=== PATIENT | female | born 1930 | race Caucasian/White ===

== ENCOUNTER 2018-05-04 23:14 | Inpatient (IN) | payer MEDICARE, MEDICAID ==
[2018-05-04 23:38] LABS: #Basophils 0.1 thou/uL (0.0-0.2); #Eosinphils 0.1 thou/uL (0.0-0.7); #Lymphocytes 2.6 thou/uL (1.20-3.40); #Monocytes 0.8 thou/uL (0.11-0.59); #Neutrophils 7.7 thou/uL (1.40-6.50); %Basophils 0.7 % (0.0-1.0); %Eosinophils 0.7 % (0.0-10.0); %Lymphocytes 22.7 % (21.0-51.0); %Monocytes 7.1 % (0.0-10.0); %Neutrophils 68.9 % (42.0-75.0); Hemoglobin 13.2 g/dL (12.0-16.0); Mean Corpuscular HGB CONC 34.4 g/dL (32.0-36.0); Mean Corpuscular Hemoglobin 32.2 pg (27.0-31.0); Mean Corpuscular Volume 93.4 fL (78.0-98.0); Mean Platelet Volume 6.5 fL (7.4-10.4); Platelet Count 320 thou/uL (130-400); RBC Distribution Width 12.7 % (11.5-14.5); White Blood Cell (WBC) Count 11.2 thou/uL (4.8-10.8)
[2018-05-04 23:44] LABS: PTT 29.5 SEC (22.9-36.1); Prothrombin Time 13.6 SEC (12.0-14.7)
[2018-05-04 23:57] LABS: ALT (SGPT) 15 U/L (8-55); AST (SGOT) 17 U/L (5-34); Albumin 3.9 g/dL (3.4-4.8); Alkaline Phosphatase 43 U/L (40-150); Anion Gap 15 mmol/L (10-20); BUN (Urea Nitrogen) 49 mg/dL (9.8-20.1); Bilirubin, Total 0.6 mg/dL (0.2-1.2); Calc. Creatinine Clearance 0 mL/min (70-130); Calcium 10.1 mg/dL (7.8-10.44); Carbon Dioxide 28 mmol/L (23-31); Chloride 96 mmol/L (98-107); Estimated GFR-MDRD 65; Globulin 2.7 g/dL (2.4-3.5); Glucose 99 mg/dL (83-110); Potassium 4.2 mmol/L (3.5-5.1); Protein, Total 6.6 g/dL (6.0-8.3); Sodium 135 mmol/L (136-145)
[2018-05-05 02:05] LABS: Bilirubin Negative (Negative); Blood, Urine Large (Negative); Clarity TURBID (Clear); Glucose, Urine (Dipstick) Negative (Negative); Leukocyte Large (Negative); Nitrite Negative (Negative); Protein, Urine (Dipstick) 30 mg/dL (Neg-Trace); Specific Gravity, Urine 1.012 (1.002-1.036); Urobilinogen 0.2 mg/dL (0.2-1.0)
[2018-05-05 02:07] LABS: Bacteria/HPF 3+ HPF (None Seen); Squamous Epithelial 21-50 HPF (0-3)
[2018-05-05 02:14] LABS: Pathc Cast-AUWi Flag 1256.23 (0-2.49); Yeast-AUWi Flag 144.6 (0-25.0)
[2018-05-05 02:21] LABS: Renal Epithelial None Seen HPF (0-3); Transitional Epithelial NONE SEEN HPF (0-3); Yeast-All Forms None Seen HPF (None Seen)
[2018-05-05 02:22] LABS: Hyaline Casts/LPF NONE SEEN LPF (0-3 Hyaline)
[2018-05-05 02:26] LABS: Other Casts/LPF None Seen LPF (0-3 Hyaline)
[2018-05-05] MEDS ORDERED: Ondansetron ODT 4 MG TAB SL PRN (04:07)
[2018-05-05] MEDS ORDERED: Ondansetron HCl/PF 4 MG/2 ML Vial IVP PRN (04:07)
[2018-05-05] MEDS ORDERED: Acetaminophen 325 MG TAB PO PRN ×2 (04:07→08:21)
[2018-05-05] MEDS ORDERED: Ondansetron ODT 4 MG TAB PO PRN (08:21)
[2018-05-05] MEDS ORDERED: Prevnar 13-Val Conj/PF 0.5 ML SYRINGE IM ONE (09:00)
[2018-05-05] MEDS: Sodium Chloride 0.9% 1,000 ML IV SCH (09:33)
[2018-05-05] MEDS: Enoxaparin Sodium 40 MG/0.4 ML SYRINGE SC SCH (09:40)
[2018-05-05] MEDS: Famotidine 20 MG TAB PO SCH (09:43)
[2018-05-05 13:08] VITALS: BMI 17.7
[2018-05-05] MEDS ORDERED: Atorvastatin Calcium 10 MG TAB PO SCH (21:00)
--- NOTE | 2018-05-05 22:07 | HP ---
CHIEF COMPLAINT: Patient did not have a chief complaint; however, chief complaint was obtained from the patient's medical records and stated that patient has possible gastrointestinal bleed. HISTORIAN: Patient's power of state attorney, patient's electronic medical record, the patient's nurse, charlee valadez. HISTORY OF PRESENT ILLNESS: This is an 87-year-old female with past medical history of hyperlipidemi a, hypertension, general weakness, muscle wasting, coronary artery disease status post pacemaker, hyp oparathyroidism, GERD, and anemia who is presenting with urinary tract infection per patient's notes. Patient was sent from the intermediate and was brought to [facility]. The patien t was at that point diagnosed with UTI reason why patient was brought to the ED per patient's records states the patient had confusion. The patient was started on Cipro and the patient was sent back to intermediate; however, upon records, stated that patient had some "blood" in her stool; therefore, t he patient was sent to our emergency room to be evaluated. Per power of state attorney and per the patient , the patient denies any abdominal pain or seen any blood in the stool. Therefore, stool occult bloo d was ordered in the ED, which came back negative and the patient has not shown any signs of any acut e bleed; therefore, the patient is now being admitted for UTI. Patient denies any fever. She denies nausea, vomiting, chest pain, abdominal pain. Patient admits to not being able to walk on her own. Per the patient, she uses her walker and was using a walker. She is able to ambulate. Also, per charlee pereyra, the patient had a little confusion when she was sent to the [facility]; corado umu, during our conversation, the patient did not show any signs of confusion. REVIEW OF SYSTEMS: Positive for weakness. Negative for all the ones that are stated in the HPI. PAST MEDICAL HISTORY: The patient has past medical history of hyperlipidemia, hypertension, hypopara thyroidism, anemia, osteoporosis, chronic bronchitis, GERD, coronary artery disease. PAST SURGICAL HISTORY: The patient had a surgical history of hysterectomy and carpal tunnel repair. SOCIAL HISTORY: Patient lives in a long-term care facility. Patient denies any drug use. The patie nt does not smoke. ALLERGIES: Patient is allergic to KEFLEX. CURRENT MEDICATIONS: 1. Patient is on Cipro 500 mg. 2. Jenny 180 mg. 3. Aspirin 325 mg. 4. Calcium 600 plus vitamin D3. 5. House protein 2 times a daily. 6. Lisinopril 5 mg. 7. MiraLax 17 grams. 8. Simvastatin 20 mg. 9. Fosamax 70 mg once a day. 10. DuoNebs. 11. Levothyroxine 75 mcg. 12. Loperamide 1 mg per 5 mL. 13. Pantoprazole 40 mg. PSYCHIATRIC HISTORY: The patient has no previous psychiatric history. PHYSICAL EXAMINATION: VITAL SIGNS: The patient's vitals, temperature 97.4, blood pressure is 99/46, pulse of 64, respirato ry rate of 23. GENERAL APPEARANCE: The patient appears her stated age, very cachectic, has generalized muscle wasti ng, lying in bed comfortably, does not appear to be in any distress. HEENT: Normocephalic, atraumatic. Pupils are equally round and reactive to light. Extraocular musc les are intact. No scleral icterus. NECK: No JVD, supple. LUNGS: Clear to auscultation bilaterally. No wheezes, no rales, no crackles appreciated. CARDIOVASCULAR: S1, S2. Pacemaker palpable in the left upper chest, 2/4 systolic murmur heard or ap preciated. No gallops. ABDOMEN: Nontender, nondistended. Positive bowel sounds in all quadrants. EXTREMITIES: Lower extremity, no edema, less than 2 seconds capillary refill, 5/5 upper lower extrem ity and lower extremity strength. NEUROLOGIC: Cranial nerves II-XII intact. No focal neurologic deficits noted. SKIN: No rashes noted. Warm, dry, and intact per my evaluation. Turned the patient to observe enmanuel ent's sacrum, but we will refer to the patient's note if there is any sacral decubitus. LABORATORY DATA: WBC 7.2, hemoglobin 13.2, hematocrit of 38.3, platelets 320. PT is 30.8, INR is 1. 0, PTT is 29.5. Chemistry: Sodium 135, potassium 4.2, chloride is 96, carbon dioxide is 28, BUN is 49, creatinine 0.83. Urinalysis shows large leukocyte esterase, negative nitrite. ASSESSMENT AND PLAN: 1. Urinary tract infection. Plan is to continue the patient on antibiotics IV, then we will continu e IV fluids. 2. Questionable melena. Currently, patient's stool occult has been negative and the patient is not showing any signs of bleed. The patient's hemoglobin has been stable. We will monitor the patient. I will follow up labs in the morning. We will likely start patient on iron pills with vitamin C on discharge. 3. Encephalopathy most likely due to urinary tract infection. Patient is currently not confused. P atient is stable and patient is communicating, alert and oriented x3. 4. Hypertension, currently controlled. Patient takes antihypertensive medication. We will continue patient on this medication. 5. Dyslipidemia. Continue patient on her current medications. 6. Hypothyroidism. Continue the patient on her medication of levothyroxine. 7. Coronary artery disease. We will continue the patient on aspirin and continue to manage the enmanuel ent. Currently, the patient is stable. 8. History of gastroesophageal reflux disease. We will continue the patient on Pepcid. History and physical has been dictated by Dr. Ganga Booker and on patient Delroy Amos.
[2018-05-06] MEDS: Sodium Chloride 0.9% 1,000 ML IV SCH ×2 (01:30→13:05)
[2018-05-06 04:53] LABS: Hemoglobin 11.8 g/dL (12.0-16.0); Mean Corpuscular Volume 93.2 fL (78.0-98.0); Red Blood Cell (RBC) Count 3.58 mill/uL (4.20-5.40); White Blood Cell (WBC) Count 7.8 thou/uL (4.8-10.8)
[2018-05-06 04:54] LABS: #Eosinphils 0.2 thou/uL (0.0-0.7); #Lymphocytes 1.5 thou/uL (1.20-3.40); #Monocytes 0.6 thou/uL (0.11-0.59); #Neutrophils 5.5 thou/uL (1.40-6.50); %Basophils 0.3 % (0.0-1.0); %Eosinophils 2.2 % (0.0-10.0); %Lymphocytes 19.7 % (21.0-51.0); %Monocytes 7.1 % (0.0-10.0); %Neutrophils 70.7 % (42.0-75.0); Mean Corpuscular HGB CONC 35.4 g/dL (32.0-36.0); Mean Platelet Volume 6.8 fL (7.4-10.4); Platelet Count 242 thou/uL (130-400); RBC Distribution Width 12.4 % (11.5-14.5)
[2018-05-06 05:25] LABS: ALT (SGPT) 11 U/L (8-55); AST (SGOT) 14 U/L (5-34); Albumin 3.4 g/dL (3.4-4.8); Alkaline Phosphatase 39 U/L (40-150); Anion Gap 11 mmol/L (10-20); BUN (Urea Nitrogen) 24 mg/dL (9.8-20.1); Bilirubin, Total 0.6 mg/dL (0.2-1.2); Calc. Creatinine Clearance 40 mL/min (70-130); Calcium 8.6 mg/dL (7.8-10.44); Carbon Dioxide 26 mmol/L (23-31); Chloride 101 mmol/L (98-107); Estimated GFR-MDRD 80; Globulin 2.3 g/dL (2.4-3.5); Glucose 85 mg/dL (83-110); Potassium 3.6 mmol/L (3.5-5.1); Protein, Total 5.7 g/dL (6.0-8.3); Sodium 134 mmol/L (136-145)
[2018-05-06] MEDS ORDERED: Levothyroxine Sodium 75 MCG TAB PO SCH (06:00)
[2018-05-06] MEDS: Enoxaparin Sodium 40 MG/0.4 ML SYRINGE SC SCH (08:28)
[2018-05-06] MEDS: Famotidine 20 MG TAB PO SCH ×2 (08:34→12:31)
[2018-05-06] MEDS: Aspirin 325 mg Enteric Coated Tablet PO SCH ×2 (08:35→12:31)
[2018-05-06] MEDS: Lisinopril 5 MG TAB PO SCH ×2 (08:38→12:31)
[2018-05-06 11:47] VITALS: TEMP 98.7
[2018-05-06 12:32] VITALS: BP 157/68
--- NOTE | 2018-05-07 14:16 | DIS ---
The patient was seen and examined by me this morning. The patient is doing well. The patient is in stable condition. The patient does not have any distress. Per the nurses, the patient was a little confused overnight; however , the patient has started sundowning since the patient is now experiencing some sort of mild dementia. DISCHARGE DIAGNOSES: 1. Urinary tract infection. 2. Hypertension. 3. Dyslipidemia. 4. Hypothyroidism. 5. Coronary artery disease. 6. History of gastroesophageal reflux disease. HOSPITAL COURSE: This is an 87-year-old female with past medical history of hyperlipidemia, hypertension, hypothyroidism, coronary artery disease who presented from a senior care to the emergency department. The patient was found to have a UTI. Patient was started on ciprofloxacin. The patient was returned back to the senior care. At the senior care the patient was noted to be a little confused. The patient was then sent back to the emergency room at [facility]. The patient was then admitted to be treated for a urinary tract infection, most likely causing the patient's mild encephalopathy. Of note, upon further questioning with the patient, the patient was alert, oriented x3 when the patient was seen. The POA was also questioned, who says that the patient is at her baseline, however, upon further investigation, it seems that the patient is now having mild dementia. Patient was then started on IV antibiotics to treat the UTI. On discharge was transitioned to p.o. Macrodantin to be taken for 7 days. DISCHARGE MEDICATIONS: Please refer to the patient's electronic medical record for discharge medications. LABORATORY: On admission, the patient's white count was 11.2, trended down to 7.8, hemoglobin was 13.2, trended down to 11.8, platelets was 320, trended down to 242. The patient's electrolytes; sodium was 135 on admission and was stable around 134. Initially, his potassium was 4.2, trended down to 3.6, BUN was 49, trended down to 24. Urinalysis showed that there was large leukocyte esterase. DISPOSITION: The patient was tolerating diet, was stable, able to ambulate. The patient stated that she is able to ambulate with her walker. The patient is being discharged back to senior care. MARIJA
== END 2018-05-06 16:55 | DRG 689 ==
LOC: ERS 23:14 → T4-A 05-05 02:43
PROVIDERS: ADMIT Hospitalist; ATTEND Hospitalist
DX: N39.0 Urinary tract infection, site not specified (principal); G93.40 Encephalopathy, unspecified; I10 Essential (primary) hypertension; E78.5 Hyperlipidemia, unspecified; E03.9 Hypothyroidism, unspecified; I25.10 Atherosclerotic heart disease of native coronary artery without angina pectoris; K21.9 Gastro-esophageal reflux disease without esophagitis; Z79.82 Long term (current) use of aspirin
CPT/HCPCS: 36415; 51701; 80053; 81003; 81015; 82274; 85025; 85610; 85730; 86850; 86900; 86901; 87040; 87086; 90471; 90670; 93005; 94760; A4216; A4353; G0009; J0744; J1650